=== PATIENT | female | born 1995 | race Caucasian/White ===

== ENCOUNTER 2017-08-22 09:30 | Emergency (ER) | payer BC, MEDICAID, OTHER ==
[~2017-08-22] VITALS: Ht 162.6 cm; Wt 49.9 kg
[2017-08-22 10:38] VITALS: BP 118/73
== END 2017-08-22 10:57 | disposition home or self-care (01) ==
LOC: ER 09:30
DX: N13.9 Obstructive and reflux uropathy, unspecified (principal)
CPT/HCPCS: 81025

== ENCOUNTER 2018-07-27 12:34 | Emergency (ER) | payer MEDICAID ==
[~2018-07-27] VITALS: Ht 167.6 cm; Wt 49.0 kg
[2018-07-27 12:46] VITALS: BP 119/80
[2018-07-27] MEDS ORDERED: KETOROLAC TROMETH 60MG/2ML VIAL IM ONE (15:00)
== END 2018-07-27 15:20 | disposition home or self-care (01) ==
LOC: ER 12:34
DX: N39.0 Urinary tract infection, site not specified (principal); F17.210 Nicotine dependence, cigarettes, uncomplicated
CPT/HCPCS: 81025; 96372; 99283; J1885

== ENCOUNTER 2019-01-22 09:34 | Emergency (ER) | payer MEDICAID ==
[~2019-01-22] VITALS: Ht 165.1 cm; Wt 49.9 kg
[2019-01-22 09:57] VITALS: BP 109/69
[2019-01-22] MEDS ORDERED: cefTRIAXone SOD 1,000 MG VL IM ONE (10:30)
[2019-01-22] MEDS ORDERED: AZITHROMYCIN 250 MG TAB PO ONE (10:30)
== END 2019-01-22 11:37 | disposition home or self-care (01) ==
LOC: ER 09:34
DX: A63.8 Other specified predominantly sexually transmitted diseases (principal); F17.210 Nicotine dependence, cigarettes, uncomplicated; F12.10 Cannabis abuse, uncomplicated; F11.10 Opioid abuse, uncomplicated; Z87.440 Personal history of urinary (tract) infections
CPT/HCPCS: 96372; 99283; J0696

== ENCOUNTER 2020-09-05 12:41 | Emergency (ER) | payer MEDICAID ==
[~2020-09-05] VITALS: Ht 165.1 cm; Wt 61.2 kg
[2020-09-05 12:59] VITALS: BP 113/86
[2020-09-05 14:23] LABS: Urine Amorphous Crystal FEW /hpf (None Seen); Urine Bacteria NONE SEEN /hpf (None Seen); Urine Blood Negative /uL (Negative); Urine Hyaline Cast FEW /lpf (0 - 2); Urine Mucus FEW (None Seen); Urine Specific Gravity 1.022 (1.001-1.035); Urine WBC 9 /hpf (0 - 5)
[2020-09-05 16:04] LABS: Alcohol, Urine < 3.0 mg/dL (0-10); Amphetamine Screen, Urine POSITIVE (NEGATIVE); Barbiturate Scree,Urine NEGATIVE (NEGATIVE); Benzodiazephine Screen, Urine NEGATIVE (NEGATIVE); Cannabinoid Screen, Urine POSITIVE (NEGATIVE); Cocaine Screen, Urine NEGATIVE (NEGATIVE); Opiate Scree,Urine POSITIVE (NEGATIVE); Phencyclidine Screen, Urine NEGATIVE (NEGATIVE)
== END 2020-09-05 16:11 | disposition home or self-care (01) ==
LOC: ER 12:41
DX: N76.0 Acute vaginitis (principal); F15.10 Other stimulant abuse, uncomplicated; F17.210 Nicotine dependence, cigarettes, uncomplicated; F12.10 Cannabis abuse, uncomplicated; Z32.02 Encounter for pregnancy test, result negative
CPT/HCPCS: 80307; 81001; 81025; 87210

== ENCOUNTER 2021-03-10 14:30 | Emergency (ER) | payer MEDICAID ==
[~2021-03-10] VITALS: Ht 165.1 cm; Wt 61.2 kg
[2021-03-10 14:40] VITALS: BP 127/91
[2021-03-10] MEDS ORDERED: SODIUM CHLORIDE 0.9% 1,000 ML IV ONE (15:15)
== END 2021-03-10 16:46 | disposition home or self-care (01) ==
LOC: ER 14:30 → EDUNIT# 14:30 → EDBD 14:30 → ER 16:46
DX: F11.10 Opioid abuse, uncomplicated (principal); F12.10 Cannabis abuse, uncomplicated; F17.210 Nicotine dependence, cigarettes, uncomplicated; Z87.440 Personal history of urinary (tract) infections
CPT/HCPCS: 93005

== ENCOUNTER 2021-09-23 03:08 | Emergency (ER) | payer MEDICAID ==
[~2021-09-23] VITALS: Ht 165.1 cm; Wt 54.4 kg
[2021-09-23 05:15] LABS: Basophils # (auto) 0 10 ^3/uL (0-0.2); Basophils % (auto) 0.3 % (0.0-2.0); Eosinophils # (auto) 0.1 10 ^3/uL (0-0.8); Eosinophils % (auto) 1.8 % (0.0-7.0); Hematocrit 42.2 % (36.0-46.0); Hemoglobin 13.9 g/dL (12.2-16.2); Lymphocytes % (auto) 38.9 % (10.0-50.0); Mean Corpuscular Hemoglobin 28.3 pg (28.0-32.0); Mean Corpuscular Volume 85.8 fL (80.0-100.0); Monocytes # (auto) 0.4 10 ^3/uL (0-1.3); Monocytes % (auto) 4.7 % (0.0-12.0); Neutrophils # (auto) 4.2 10 ^3/uL (1.6-8.6); Neutrophils % (auto) 54.3 % (37.0-80.0); Nucleated Red Blood Cells % 0.9 %; Red Blood Cells 4.92 10^6/uL (4.0-5.20); Red Cell Distribution Width 14.5 % (11.8-14.3); White Blood Cell 7.7 10^3/uL (4.4-10.8)
[2021-09-23 05:40] LABS: Albumin 3.7 g/dL (3.4-5.0); BUN/Creatinine Ratio 21.5
[2021-09-23 05:43] LABS: Salicylate < 1.7 mg/dL (2.8-20.0)
[2021-09-23 05:49] LABS: Bilirubin, Total 0.2 mg/dL (0.2-1.0); Total Protein 7.9 g/dL (6.4-8.2)
[2021-09-23 05:53] LABS: Acetaminophen < 2.0 ug/mL (10-30)
[2021-09-23 11:42] LABS: Alcohol, Urine < 3.0 mg/dL (0-10); Amphetamine Screen, Urine POSITIVE (NEGATIVE); Barbiturate Scree,Urine NEGATIVE (NEGATIVE); Benzodiazephine Screen, Urine NEGATIVE (NEGATIVE); Cannabinoid Screen, Urine POSITIVE (NEGATIVE); Cocaine Screen, Urine NEGATIVE (NEGATIVE); Opiate Scree,Urine NEGATIVE (NEGATIVE); Phencyclidine Screen, Urine NEGATIVE (NEGATIVE)
[2021-09-23 12:08] LABS: Urine Bacteria FEW /hpf (None Seen); Urine Blood Negative /uL (Negative); Urine Specific Gravity 1.017 (1.001-1.035); Urine WBC <1 /hpf (0 - 5)
[2021-09-23 12:18] VITALS: BP 106/69
== END 2021-09-23 13:43 | disposition home or self-care (01) ==
LOC: ER 03:08 → EDBD 03:08 → ER 13:43
DX: F11.10 Opioid abuse, uncomplicated (principal); F12.10 Cannabis abuse, uncomplicated; F17.210 Nicotine dependence, cigarettes, uncomplicated; R41.82 Altered mental status, unspecified; Z59.00 Homelessness unspecified
CPT/HCPCS: 36415; 80053; 80307; 80329; 81001; 85025; 93005